=== PATIENT | male | born 1980 | race Caucasian/White ===

== ENCOUNTER 2016-12-02 19:02 | Emergency (ER) | payer OTHER ==
[~2016-12-02] VITALS: Ht 182.9 cm; Wt 71.9 kg
[~2016-12-02 19:02] MED LIST: HYDR-2768 PO; LORTA5 PO
[2016-12-02 19:05] VITALS: BP 174/110; PULSE 110; RESP 20; TEMP 99; O2SAT 96
--- NOTE | 2016-12-02 22:36 | PD ---
HPI Chief Complaint: Medical Clearance Time Seen by Provider: 22:26 Travel History International Travel<30 days: No Contact w/Intl Traveler<30days: No Traveled to known affect area: No History of Present Illness HPI The patient is a 36-year-old male who presents emergency department for psychiatric evaluation. The patient states his father and him were involved in an argument and dispute on Wednesday. The patient's dog apparently attacked his father who "nearly bled out ", and had to be admitted to the hospital with a wound VAC. The patient states that since he argument and fight with his father, he has had difficulty sleeping, difficulty concentrating, and has been "shivering ". Patient is also been using drugs including cocaine, cocaine, benzodiazepines, Dilaudid, and alcohol. The patient does have a history of IV drug abuse and drug abuse in the past, but denies any history of rehabilitation. According to the family, mother and sister, the patient is also made statements that he wants to "jump off a bridge ", and never "wake up ". The patient denies any actual suicidal ideation or homicidal ideation. Patient does state he is upset about the dispute with his father and the subsequent dog attack in hospitalization. The patient denies any previous history of suicide attempts. The patient denies any chronic psychiatric disorders. PFSH Past Medical History Cancer: No Cardiovascular Problems: No Diminished Hearing: No Endocrine: No Genitourinary: No Immune Disorder: No Musculoskeletal: No Neurologic: No Psychiatric: No Reproductive: No Respiratory: No Immunizations Current: Yes Past Surgical History Abdominal Surgery: Yes (LAP APPENDECTOMY) Social History Alcohol Use: Yes Tobacco Use: Yes Substance Use: Yes (CANIBIS OCCASIONALLY, ) Allergies-Medications (Allergen,Severity, Reaction): Coded Allergies: Ibuprofen (Verified Adverse Reaction, Mild, PUFFY EYES, 12/02/16) Reported Meds & Prescriptions Reported Meds & Active Scripts Active Review of Systems Except as stated in HPI: all other systems reviewed are Neg General / Constitutional: No: Fever Cardiovascular: No: Chest Pain or Discomfort Respiratory: No: Shortness of Breath Gastrointestinal: No: Nausea, Vomiting, Abdominal Pain Neurologic: No: Weakness, Dizziness Psychiatric: Positive: Suicidal Ideations (according to the mother and sister) , Substance Abuse Physical Exam Narrative GENERAL: Awake, alert, pleasant 36-year-old male appears his stated age and is in no acute respiratory distress. Patient was shivering. SKIN: Warm and dry. HEAD: Atraumatic. Normocephalic. EYES: Pupils equal and round. No scleral icterus. No injection or drainage. ENT: No nasal bleeding or discharge. Mucous membranes pink and moist. NECK: Trachea midline. No JVD. CARDIOVASCULAR: Regular, tachycardic with a heart rate of 105. RESPIRATORY: No accessory muscle use. Clear to auscultation. Breath sounds equal bilaterally. GASTROINTESTINAL: Abdomen soft, non-tender, nondistended. No rebound tenderness. MUSCULOSKELETAL: No obvious deformities. No clubbing. No cyanosis. No edema. NEUROLOGICAL: Awake and alert. No obvious cranial nerve deficits. Motor grossly within normal limits. Normal speech. Nonfocal. PSYCHIATRIC: Slightly flat affect. Data Data Last Documented VS Vital Signs Date Time Temp Pulse Resp B/P Pulse Ox O2 Delivery O2 Flow Rate FiO2 12/02/16 19:05 99.0 110 20 174/110 96 Room Air Orders Complete Blood Count With Diff (12/02/16 22:32) Comprehensive Metabolic Panel (12/02/16 22:32) Drug Screen, Random Urine (12/02/16 22:32) Alcohol (Ethanol) (12/02/16 22:32) Psych Screen (12/02/16 22:32) Lorazepam (Ativan) (12/02/16 22:45) Labs Laboratory Tests Test 12/02/16 22:35 White Blood Count 6.8 TH/MM3 Red Blood Count 5.43 MIL/MM3 Hemoglobin 17.4 GM/DL Hematocrit 48.8 % Mean Corpuscular Volume 89.8 FL Mean Corpuscular Hemoglobin 32.0 PG Mean Corpuscular Hemoglobin 35.6 % Concent Red Cell Distribution Width 12.6 % Platelet Count 276 TH/MM3 Mean Platelet Volume 7.1 FL Neutrophils (%) (Auto) 47.1 % Lymphocytes (%) (Auto) 36.7 % Monocytes (%) (Auto) 15.1 % Eosinophils (%) (Auto) 0.5 % Basophils (%) (Auto) 0.6 % Neutrophils # (Auto) 3.2 TH/MM3 Lymphocytes # (Auto) 2.5 TH/MM3 Monocytes # (Auto) 1.0 TH/MM3 Eosinophils # (Auto) 0.0 TH/MM3 Basophils # (Auto) 0.0 TH/MM3 CBC Comment DIFF FINAL Differential Comment Sodium Level 138 MEQ/L Potassium Level 3.9 MEQ/L Chloride Level 97 MEQ/L Carbon Dioxide Level 32.5 MEQ/L Anion Gap 9 MEQ/L Blood Urea Nitrogen 7 MG/DL Creatinine 1.18 MG/DL Estimat Glomerular Filtration 69 ML/MIN Rate Random Glucose 93 MG/DL Calcium Level 8.8 MG/DL Total Bilirubin 0.5 MG/DL Aspartate Amino Transf 213 U/L (AST/SGOT) Alanine Aminotransferase 309 U/L (ALT/SGPT) Alkaline Phosphatase 89 U/L Total Protein 8.3 GM/DL Albumin 3.8 GM/DL Ethyl Alcohol Level LESS THAN 3 MG/DL MDM Medical Decision Making Medical Screen Exam Complete: Yes Emergency Medical Condition: Yes Medical Record Reviewed: Yes Interpretation(s) Laboratory Tests Test 12/02/16 22:35 White Blood Count 6.8 TH/MM3 Red Blood Count 5.43 MIL/MM3 Hemoglobin 17.4 GM/DL Hematocrit 48.8 % Mean Corpuscular Volume 89.8 FL Mean Corpuscular Hemoglobin 32.0 PG Mean Corpuscular Hemoglobin 35.6 % Concent Red Cell Distribution Width 12.6 % Platelet Count 276 TH/MM3 Mean Platelet Volume 7.1 FL Neutrophils (%) (Auto) 47.1 % Lymphocytes (%) (Auto) 36.7 % Monocytes (%) (Auto) 15.1 % Eosinophils (%) (Auto) 0.5 % Basophils (%) (Auto) 0.6 % Neutrophils # (Auto) 3.2 TH/MM3 Lymphocytes # (Auto) 2.5 TH/MM3 Monocytes # (Auto) 1.0 TH/MM3 Eosinophils # (Auto) 0.0 TH/MM3 Basophils # (Auto) 0.0 TH/MM3 CBC Comment DIFF FINAL Differential Comment Sodium Level 138 MEQ/L Potassium Level 3.9 MEQ/L Chloride Level 97 MEQ/L Carbon Dioxide Level 32.5 MEQ/L Anion Gap 9 MEQ/L Blood Urea Nitrogen 7 MG/DL Creatinine 1.18 MG/DL Estimat Glomerular Filtration 69 ML/MIN Rate Random Glucose 93 MG/DL Calcium Level 8.8 MG/DL Total Bilirubin 0.5 MG/DL Aspartate Amino Transf 213 U/L (AST/SGOT) Alanine Aminotransferase 309 U/L (ALT/SGPT) Alkaline Phosphatase 89 U/L Total Protein 8.3 GM/DL Albumin 3.8 GM/DL Ethyl Alcohol Level LESS THAN 3 MG/DL Differential Diagnosis Differential diagnosis includes adjustment reaction, substance induced mood disorder, polysubstance abuse, intoxication, depressive disorder NOS, mood disorder. Narrative Course Labs were drawn and sent. Psychiatric evaluation was ordered. The patient was administered Ativan 1 mg orally. Labs were noted, AST and ALT were mildly elevated in the 200s and 300s respectively.. The patient is medically clear to be evaluated by psychiatry. Disposition as per psych. Diagnosis Primary Impression: Substance induced mood disorder Additional Impressions: Adjustment reaction Qualified Code: F43.20 - Adjustment disorder, unspecified type Elevated transaminase level Condition: Stable Gregg Stacy MD Dec 02, 2016 22:36
[2016-12-02] MEDS ORDERED: LORazepam 1 MG TAB PO ONE (22:45)
[2016-12-02 22:51] LABS: AUTOMATED NEUTROPHIL # 3.2 TH/MM3 (1.8-7.7); BASOPHIL % 0.6 % (0.0-2.0); EOSINOPHIL % 0.5 % (0.0-4.0); HEMATOCRIT 48.8 % (39.0-51.0); HEMO FLAGS DIFF FINAL; LYMPH % 36.7 % (9.0-44.0); LYMPHOCYTE # 2.5 TH/MM3 (1.0-4.8); MEAN CELL VOLUME 89.8 FL (80.0-100.0); MEAN CORPUSCULAR HGB CONC 35.6 % (32.0-36.0); MONO % 15.1 % (0.0-8.0); NEUT % 47.1 % (16.0-70.0); PLATELET COUNT 276 TH/MM3 (150-450); RED BLOOD COUNT 5.43 MIL/MM3 (4.50-5.90); RED CELL DISTRIBUTION WIDTH 12.6 % (11.6-17.2); WHITE BLOOD COUNT 6.8 TH/MM3 (4.0-11.0)
[2016-12-02 23:15] LABS: ANION GAP 9 MEQ/L (5-15)
[2016-12-02 23:19] LABS: ALKALINE PHOSPHATASE 89 U/L (45-117); ALT (GPT) 309 U/L (12-78); AST (GOT) 213 U/L (15-37); BICARBONATE 32.5 MEQ/L (21.0-32.0); BLOOD UREA NITROGEN 7 MG/DL (7-18); CHLORIDE 97 MEQ/L (98-107); GLOMERULAR FILTRATION RATE 69 ML/MIN (>89); POTASSIUM 3.9 MEQ/L (3.5-5.1); SODIUM (NA) 138 MEQ/L (136-145); TOTAL BILIRUBIN ADULT 0.5 MG/DL (0.2-1.0)
[2016-12-03 00:18] LABS: AMPHETAMINE, URINE NEG (NEG); BARBITURATES, URINE NEG (NEG); COCAINE, URINE POS (NEG)
[2016-12-03 00:20] VITALS: BP 137/93; PULSE 87; RESP 18; O2SAT 98
== END 2016-12-03 02:56 | disposition short-term general hospital (02) ==
LOC: NEPE 19:02
DX: F19.94 Other psychoactive substance use, unspecified with psychoactive substance-induced mood disorder (principal); F43.20 Adjustment disorder, unspecified; R74.0 Nonspecific elevation of levels of transaminase and lactic acid dehydrogenase [LDH]; Z72.0 Tobacco use
CPT/HCPCS: 80053; 80307; 80320; 85025; 99284

== ENCOUNTER 2017-01-28 00:54 | Inpatient (IN) | payer OTHER ==
[2017-01-28] VITALS (8 sets, daily range): BP systolic 117–151; BP diastolic 62–92; PULSE 88–114; RESP 14–19; TEMP 97.2–99.2; O2SAT 95–100
[2017-01-28 01:14] LABS: AUTOMATED NEUTROPHIL # 7.3 TH/MM3 (1.8-7.7); BASOPHIL # 0.1 TH/MM3 (0-0.2); BASOPHIL % 0.5 % (0.0-2.0); EOSINOPHIL # 0.2 TH/MM3 (0-0.4); EOSINOPHIL % 1.8 % (0.0-4.0); HEMATOCRIT 37.3 % (39.0-51.0); HEMO FLAGS DIFF FINAL; I-STAT POTASSIUM 3.8 MMOL/L (3.5-4.9); LYMPHOCYTE # 3.4 TH/MM3 (1.0-4.8); MEAN CELL VOLUME 91.5 FL (80.0-100.0); MEAN CORPUSCULAR HEMOGLOBIN 32.3 PG (27.0-34.0); MEAN CORPUSCULAR HGB CONC 35.3 % (32.0-36.0); MONO % 5.9 % (0.0-8.0); NEUT % 62.8 % (16.0-70.0); PLATELET COUNT 298 TH/MM3 (150-450); RED BLOOD COUNT 4.08 MIL/MM3 (4.50-5.90); WHITE BLOOD COUNT 11.7 TH/MM3 (4.0-11.0)
[2017-01-28 01:26] LABS: APTT (PATIENT) 25.2 SEC (24.3-30.1); PROTHROMBIN TIME - PATIENT 10.8 SEC (9.8-11.6)
--- NOTE | 2017-01-28 01:31 | PD ---
HPI Chief Complaint: Trauma (Alert) Time Seen by Provider: 01:06 Travel History International Travel<30 days: No (trauma alert) Contact w/Intl Traveler<30days: No History of Present Illness HPI The patient is approximately 28 years old. He was attacked by a pitbull. EMS notes a 7" x 3" avulsion to the scalp. They estimate approximately 500 cc of blood loss on scene. Application of an ABD pad held minimize bleeding. He received 6 mg of morphine prior to ER arrival. He also received a few 100 cc of saline. Upon arrival to the ER the scalp dressing was removed and the patient was seen to have a avulsion extending from the upper forehead into the region of the vertex at least 10 cm wide and at least 10 cm long. Along the wound margins arterial bleeds were observed. 4 x 4's were placed and 2 Moy bandages were wrapped about the wound. Dr. Quezada will take the patient directly to the OR for operative repair. The patient did require an additional 50 g fentanyl twice for pain control here he also received a liter crystalloid here. 2 units of PRBCs were also transfused. Heart rate was about 100-110 during his ER stay with the blood pressure about 150/90 on average. [facility] Past Medical History Medical History: Denies Significant Hx Past Surgical History Surgical History: No Previous Surgery Allergies-Medications (Allergen,Severity, Reaction): Coded Allergies: Penicillin (Unverified Allergy, Intermediate, 01/28/17) Review of Systems ROS Limitations: Clinical Condition Physical Exam Narrative GENERAL: Approximately 28-year-old well-developed well-nourished male SKIN: Warm and dry. HEAD: Large avulsion. Arterial bleeds at margins. EYES: Pupils equal and round. No scleral icterus. No injection or drainage. ENT: No nasal bleeding or discharge. Mucous membranes pink and moist. NECK: Trachea midline. No JVD. CARDIOVASCULAR: Regular. Tachycardia. RESPIRATORY: No accessory muscle use. Clear to auscultation. Breath sounds equal bilaterally. GASTROINTESTINAL: Abdomen soft, non-tender, nondistended. Hepatic and splenic margins not palpable. MUSCULOSKELETAL: No obvious deformities. No clubbing. No cyanosis. No edema. NEUROLOGICAL: Awake and alert. No obvious cranial nerve deficits. Motor grossly within normal limits. Normal speech. PSYCHIATRIC: Appropriate mood and affect; insight and judgment normal. Data Data Orders Fentanyl Inj (Fentanyl Inj) (3/16/17 01:05) I-Stat Profile (01/28/17 01:06) I-Stat Creatinine (01/28/17 01:06) Complete Blood Count With Diff (01/28/17 01:06) Prothrombin Time / Inr (Pt) (01/28/17 01:06) Act Partial Throm Time (Ptt) (01/28/17 01:06) Admit Order (Ed Use Only) (01/28/17 01:29) Labs Laboratory Tests Test 01/28/17 00:58 White Blood Count 11.7 TH/MM3 Red Blood Count 4.08 MIL/MM3 Hemoglobin 13.2 GM/DL Bedside Hemoglobin 12.9 G/DL Hematocrit 37.3 % Bedside Hematocrit 38.0 % Mean Corpuscular Volume 91.5 FL Mean Corpuscular Hemoglobin 32.3 PG Mean Corpuscular Hemoglobin 35.3 % Concent Red Cell Distribution Width 14.0 % Platelet Count 298 TH/MM3 Mean Platelet Volume 7.1 FL Neutrophils (%) (Auto) 62.8 % Lymphocytes (%) (Auto) 29.0 % Monocytes (%) (Auto) 5.9 % Eosinophils (%) (Auto) 1.8 % Basophils (%) (Auto) 0.5 % Neutrophils # (Auto) 7.3 TH/MM3 Lymphocytes # (Auto) 3.4 TH/MM3 Monocytes # (Auto) 0.7 TH/MM3 Eosinophils # (Auto) 0.2 TH/MM3 Basophils # (Auto) 0.1 TH/MM3 CBC Comment DIFF FINAL Differential Comment Prothrombin Time 10.8 SEC Prothromb Time International 1.0 RATIO Ratio Activated Partial 25.2 SEC Thromboplast Time Bedside Sodium 145 MMOL/L Bedside Potassium 3.8 MMOL/L Bedside Chloride 102 MMOL/L Bedside Blood Urea Nitrogen 10 MG/DL Bedside Creatinine 1.1 MG/DL Bedside Glucose 101 MG/DL Blood Type O POSITIVE Antibody Screen NEGATIVE Crossmatch Leukocyte-Reduced Red Blood Cells Blood Bank Comment [facility] Medical Screen Exam Complete: Yes Emergency Medical Condition: Yes Differential Diagnosis ICH, skull/skull base fx, c-spine fx, facial bone fracture, DENISE, PTX, aorta injury, diaphragm rupture, pelvis fracture, intraperitoneal hemorrhage, solid organ injury, retroperitoneal hemorrhage, long bone fracture, open fracture Narrative Course Please refer to history of present illness. Ancef and tetanus given. Patient will go to OR for operative management. Trauma Alert - Level One Trauma Alert Level One: Full trauma team activate, Patient evaluated, Trauma surgeon summoned Time Surgeon Summoned: 00:36 Time Anesthesiologist Summoned: 00:37 Diagnosis Diagnosis: Primary Impression: Scalp avulsion Qualified Code: S08.0XXA - Scalp avulsion, initial encounter Admitting Physician Requests: Admit David Marr MD Jan 28, 2017 01:30
[2017-01-28] MEDS ORDERED: VANCOMYCIN HCL 1000 MG VIAL OTHER ONE (02:25)
[2017-01-28] MEDS ORDERED: SUGAMMADEX SODIUM 200 MG/2 ML VIAL IV PUSH ONE ×2 (02:32)
[2017-01-28] MEDS ORDERED: ACETAMINOPHEN 1000 MG/100 ML VIAL IV ONE (02:32)
[2017-01-28 02:40] LABS: AUTOMATED NEUTROPHIL # 10.7 TH/MM3 (1.8-7.7); BASOPHIL % 0.3 % (0.0-2.0); EOSINOPHIL # 0.1 TH/MM3 (0-0.4); EOSINOPHIL % 0.8 % (0.0-4.0); HEMATOCRIT 30.6 % (39.0-51.0); HEMO FLAGS DIFF FINAL; LYMPH % 15.8 % (9.0-44.0); LYMPHOCYTE # 2.2 TH/MM3 (1.0-4.8); MEAN CELL VOLUME 91.5 FL (80.0-100.0); MEAN CORPUSCULAR HEMOGLOBIN 31.5 PG (27.0-34.0); MEAN CORPUSCULAR HGB CONC 34.4 % (32.0-36.0); MONO % 7.3 % (0.0-8.0); NEUT % 75.8 % (16.0-70.0); PLATELET COUNT 229 TH/MM3 (150-450); RED BLOOD COUNT 3.34 MIL/MM3 (4.50-5.90); WHITE BLOOD COUNT 14.1 TH/MM3 (4.0-11.0)
[2017-01-28] MEDS ORDERED: MORPHINE SULFATE 4 MG/ML INJ ONE (02:59)
[2017-01-28] MEDS ORDERED: *MEPERIDINE 25 MG INJ VIAL PERIprocedural Use ONLY ONE (02:59)
[2017-01-28] MEDS ORDERED: MISCELLANEOUS NURSING INFORMATION XX SCH (03:00)
[2017-01-28] MEDS ORDERED: RABIES VACCINE HUMAN DIPL CELL 2.5 UNITS/ML SYRINGE IM ONE (03:00)
[2017-01-28] MEDS ORDERED: LEVOFLOXACIN 500 MG PREMIX INJ 100 ML IV SCH (03:00)
[2017-01-28] MEDS ORDERED: ONDANSETRON HCL 4 MG/2 ML VIAL IV PRN (03:00)
[2017-01-28] MEDS: LACTATED RINGER'S 1000 ML INJ 1,000 ML IV SCH ×2 (03:00→12:53)
[2017-01-28] MEDS ORDERED: SODIUM CHLORIDE 0.9% FLUSH 5 ML FLUSH IVF PRN (03:00)
[2017-01-28] MEDS ORDERED: CHLORHEXIDINE GLUCONATE 2 % 1 PACK (2 CLOTHS) TOP PRN (03:00)
[2017-01-28] MEDS ORDERED: fentaNYL CITRATE 250 MCG/5 ML AMP ONE (03:07)
[2017-01-28] MEDS ORDERED: MIDAZOLAM HCL 2 MG/2 ML VIAL ONE (03:07)
--- NOTE | 2017-01-28 03:07 | HHI.HP ---
History of Present Illness Primary Care Physician Unknown Admission Diagnosis Scalp Avulsion Diagnoses: History of Present Illness 36 y.o male presents as a trauma alert after dog bite of his head.Large blood loss at the scene-HD stable,neuro intact-removal of dressing shows several points of arterial bleeding and large descalping area-forehead to vertex- dressing applied-and patient brought emergently to the OR. Review of Systems Constitutional: DENIES: Diaphoretic episodes, Fatigue, Fever, Weight gain, Weight loss, Chills, Dizziness, Change in appetite, Night Sweats Endocrine: DENIES: Heat/cold intolerance, Polydipsia, Polyuria, Polyphagia Eyes: DENIES: Blurred vision, Diplopia, Eye inflammation, Eye pain, Vision loss , Photosensitivity, Double Vision Ears, nose, mouth, throat: DENIES: Tinnitus, Hearing loss, Vertigo, Nasal discharge, Oral lesions, Throat pain, Hoarseness, Ear Pain, Running Nose, Epistaxis, Sinus Pain, Toothache, Odynophagia Respiratory: DENIES: Apneas, Cough, Snoring, Wheezing, Hemoptysis, Sputum production, Shortness of breath Cardiovascular: DENIES: Chest pain, Palpitations, Syncope, Dyspnea on Exertion , PND, Lower Extremity Edema, Orthopnea, Claudication Gastrointestinal: DENIES: Abdominal pain, Black stools, Bloody stools, Constipation, Diarrhea, Nausea, Vomiting, Difficulty Swallowing, Anorexia Genitourinary: DENIES: Sexual dysfunction, Urinary frequency, Urinary incontinence, Urgency, Hematuria, Dysuria, Nocturia, Penile Discharge, Testicular Pain, Testicular Swelling Musculoskeletal: DENIES: Joint pain, Muscle aches, Stiffness, Joint Swelling, Back pain, Neck pain Integumentary: DENIES: Abnormal pigmentation, Nail changes, Pruritus, Rash Hematologic/lymphatic: DENIES: Bruising, Lymphadenopathy Immunologic/allergic: DENIES: Eczema, Urticaria Neurologic: DENIES: Abnormal gait, Headache, Localized weakness, Paresthesias, Seizures, Speech Problems, Tremor, Poor Balance Psychiatric: DENIES: Anxiety, Confusion, Mood changes, Depression, Hallucinations, Agitation, Suicidal Ideation, Homicidal Ideation, Delusions Past Family Social History Allergies: Coded Allergies: Penicillin (Unverified Allergy, Intermediate, 01/28/17) Past Medical History none Past Surgical History none Reported Medications none Active Ordered Medications none Family History none Social History none Physical Exam Vital Signs Vital Signs Date Time Temp Pulse Resp B/P Pulse Ox O2 Delivery O2 Flow Rate FiO2 01/28/17 00:01 100 2.00 Physical Exam GENERAL: This is a well-nourished, well-developed patient, in mild distress. SKIN: No rashes, ecchymoses or lesions. Cool and dry.Large descalping of scalp forehead to vertex HEAD: Atraumatic. Normocephalic. No temporal or scalp tenderness. EYES: Pupils equal round and reactive. Extraocular motions intact. No scleral icterus. No injection or drainage. ENT: Nose without bleeding, purulent drainage or septal hematoma. Throat without erythema, tonsillar hypertrophy or exudate. Uvula midline. Airway patent. NECK: Trachea midline. No JVD or lymphadenopathy. Supple, nontender, no meningeal signs. CARDIOVASCULAR: Regular rate and rhythm without murmurs, gallops, or rubs. RESPIRATORY: Clear to auscultation. Breath sounds equal bilaterally. No wheezes , rales, or rhonchi. GASTROINTESTINAL: Abdomen soft, non-tender, nondistended. No hepato-splenomegaly , or palpable masses. No guarding. MUSCULOSKELETAL: Extremities without clubbing, cyanosis, or edema. No joint tenderness, effusion, or edema noted. No calf tenderness. Negative Homans sign bilaterally. NEUROLOGICAL: Awake and alert. Cranial nerves II through XII intact. Motor and sensory grossly within normal limits. Five out of 5 muscle strength in all muscle groups. Normal speech. Laboratory Laboratory Tests Test 01/28/17 01/28/17 00:58 02:27 White Blood Count 11.7 14.1 Red Blood Count 4.08 3.34 Hemoglobin 13.2 10.5 Bedside Hemoglobin 12.9 Hematocrit 37.3 30.6 Bedside Hematocrit 38.0 Mean Corpuscular Volume 91.5 91.5 Mean Corpuscular Hemoglobin 32.3 31.5 Mean Corpuscular Hemoglobin 35.3 34.4 Concent Red Cell Distribution Width 14.0 14.0 Platelet Count 298 229 Mean Platelet Volume 7.1 7.3 Neutrophils (%) (Auto) 62.8 75.8 Lymphocytes (%) (Auto) 29.0 15.8 Monocytes (%) (Auto) 5.9 7.3 Eosinophils (%) (Auto) 1.8 0.8 Basophils (%) (Auto) 0.5 0.3 Neutrophils # (Auto) 7.3 10.7 Lymphocytes # (Auto) 3.4 2.2 Monocytes # (Auto) 0.7 1.0 Eosinophils # (Auto) 0.2 0.1 Basophils # (Auto) 0.1 0.0 CBC Comment DIFF FINAL DIFF FINAL Differential Comment Prothrombin Time 10.8 Prothromb Time International 1.0 Ratio Activated Partial 25.2 Thromboplast Time Bedside Sodium 145 Bedside Potassium 3.8 Bedside Chloride 102 Bedside Blood Urea Nitrogen 10 Bedside Creatinine 1.1 Bedside Glucose 101 Blood Type O POSITIVE Antibody Screen NEGATIVE Crossmatch Leukocyte-Reduced Red Blood Cells Blood Bank Comment Result Diagram: 01/28/17 0227 Assessment and Plan Assessment and Plan Large complex descalping-from forehead to vertex with active bleeding Dressing applied patient urgently brought to the OR Beth Quezada MD Jan 28, 2017 03:07
[2017-01-28] MEDS ORDERED: LORazepam 0.5 MG TAB PO PRN (03:15)
--- NOTE | 2017-01-28 03:18 | PD.OP ---
Operative Report Preoperative Diagnosis: (1) Bite from dog (2) complex wound scalp Postoperative Diagnosis: Dog Bite Descalping with skin soft tissue loss [id number] Procedure: Washout with abx solution,hemostatis Anesthesia: general Surgeon: Beth Quezada Critical Care Transport Nurse(s): OR staff Operation and Findings: The 36-year-old male was brought in as a trauma alert-actively bleeding complex wound of the skull-brought to the OR for immediate exploration and hemostasis. Technique He was brought into the OR and identified as the patient. The administration general anesthesia patient's scalp was sterilely prepped and draped using usual technique. Hemostasis was obtained from multiple bleeding vessels combination of Bovie cautery suture tie and free tie. Washout was performed with antibiotic solution. Wound shows complete loss of skin and soft tissue exposure of skull and galea. The wound extends from the forehead to the vertex-size is 10 15 cm. Hemostatic dressing was applied. Postoperatively plan IV antibiotics,rabies vaccine. Plastics consult in the a.m.Patient's family was updated postoperatively. Beth Quezada MD Jan 28, 2017 03:18
[2017-01-28] MEDS ORDERED: DO NOT ADM ANY ANTICOAGULANT DRUGS XX PRN (03:45)
[2017-01-28] MEDS ORDERED: CHLORHEXIDINE GLUCONATE 2 % 1 PACK (2 CLOTHS) TOP SCH (04:00)
[2017-01-28] MEDS: HYDROmorphone HCL PF 2 MG/ML VIAL IVP PRN ×4 (04:25→11:42)
[2017-01-28] MEDS: metroNIDAZOLE 500 MG INJ 100 ML IV SCH ×2 (07:35→11:07)
[2017-01-28] MEDS ORDERED: DOCUSATE SODIUM 50 MG/SENNA 8.6 MG TAB PO SCH (09:00)
[2017-01-28] MEDS ORDERED: FAMOTIDINE 20 MG TAB PO SCH (09:00)
[2017-01-28] MEDS ORDERED: NICOTINE 14 MG/24 HR PATCH TD SCH (11:00)
[2017-01-28 11:43] LABS: HEMATOCRIT 37.5 % (39.0-51.0); MEAN CELL VOLUME 90.4 FL (80.0-100.0); MEAN CORPUSCULAR HEMOGLOBIN 30.2 PG (27.0-34.0); MEAN CORPUSCULAR HGB CONC 33.4 % (32.0-36.0); PLATELET COUNT 274 TH/MM3 (150-450); RED BLOOD COUNT 4.15 MIL/MM3 (4.50-5.90); RED CELL DISTRIBUTION WIDTH 14.2 % (11.6-17.2); REVIEW FLAG FINAL; WHITE BLOOD COUNT 14.2 TH/MM3 (4.0-11.0)
[2017-01-28] MEDS ORDERED: PROPOFOL 200 MG/20 ML AMP IV ONE (12:00)
[2017-01-28] MEDS ORDERED: PHENYLEPH/NS 1000 MCG/10 ML SYR IV ONE (12:00)
[2017-01-28] MEDS ORDERED: LACTATED RINGER'S 1000 ML INJ 1,000 ML IV ONE (12:00)
[2017-01-28] MEDS ORDERED: ONDANSETRON HCL 4 MG/2 ML VIAL IV PUSH ONE (12:00)
[2017-01-28 12:03] LABS: ALKALINE PHOSPHATASE 56 U/L (45-117); ALT (GPT) 104 U/L (12-78); ANION GAP 7 MEQ/L (5-15); AST (GOT) 47 U/L (15-37); BICARBONATE 28.5 MEQ/L (21.0-32.0); BLOOD UREA NITROGEN 10 MG/DL (7-18); CHLORIDE 103 MEQ/L (98-107); GLOMERULAR FILTRATION RATE 67 ML/MIN (>89); POTASSIUM 4.1 MEQ/L (3.5-5.1); SODIUM (NA) 138 MEQ/L (136-145); TOTAL BILIRUBIN ADULT 0.5 MG/DL (0.2-1.0)
[2017-01-28] MEDS ORDERED: ONDA4INJ2 IV (13:48)
[2017-01-28] MEDS ORDERED: FAMO20TA2 PO (13:48)
[2017-01-28] MEDS ORDERED: NICO14DI TD (13:48)
[2017-01-28] MEDS ORDERED: LORA-392 PO (13:48)
[2017-01-28] MEDS ORDERED: HYDR2INJ6 IVP (13:48)
[2017-01-28] MEDS ORDERED: SENN1TAB PO (13:48)
[2017-01-28] MEDS: HYDROmorphone HCL PF 1 MG/ML VIAL IV PUSH PRN ×2 (14:34→16:46)
--- NOTE | 2017-01-28 14:57 | HHI.DS ---
Discharge Summary Admission Date Jan 28, 2017 at 01:31 Discharge Date: Jan 28, 2017 Admitting Diagnosis Scalp Avulsion Brief History S/P Trauma: Dog bite CBC/BMP: 01/28/17 1122 01/28/17 1122 Significant Findings Laboratory Tests Test 01/28/17 01/28/17 01/28/17 00:58 02:27 11:22 White Blood Count 11.7 TH/MM3 14.1 TH/MM3 14.2 TH/MM3 (4.0-11.0) (4.0-11.0) (4.0-11.0) Red Blood Count 4.08 MIL/MM3 3.34 MIL/MM3 4.15 MIL/MM3 (4.50-5.90) (4.50-5.90) (4.50-5.90) Hematocrit 37.3 % 30.6 % 37.5 % (39.0-51.0) (39.0-51.0) (39.0-51.0) Bedside Glucose 101 MG/DL (60-95) Hemoglobin 10.5 GM/DL 12.5 GM/DL (13.0-17.0) (13.0-17.0) Neutrophils (%) (Auto) 75.8 % (16.0-70.0) Neutrophils # (Auto) 10.7 TH/MM3 (1.8-7.7) Monocytes # (Auto) 1.0 TH/MM3 (0-0.9) Estimat Glomerular Filtration 67 ML/MIN (>89) Rate Random Glucose 159 MG/DL (74-106) Calcium Level 7.7 MG/DL (8.5-10.1) Aspartate Amino Transf 47 U/L (15-37) (AST/SGOT) Alanine Aminotransferase 104 U/L (12-78) (ALT/SGPT) Albumin 3.2 GM/DL (3.4-5.0) PE at Discharge GENERAL: 36 year old male sitting OOB in chair. SKIN: Warm and dry. HEAD: Normocephalic. Dry dressing to head c/d/i. ENT: No nasal bleeding or discharge. Mucous membranes pink and moist. NECK: Trachea midline. No JVD. CARDIOVASCULAR: Regular rate and rhythm. RESPIRATORY: No accessory muscle use. Clear to auscultation. Breath sounds equal bilaterally. GASTROINTESTINAL: Abdomen soft, non-tender, nondistended.+ BS. MUSCULOSKELETAL: Extremities without clubbing, cyanosis, or edema. No obvious deformities. NEUROLOGICAL: Awake and alert. Normal speech. Hospital Course [place]: Attacked by a pit bull on the head. Large blood loss on scene. INJURIES: Scalp avulsion with arterial bleed. 01/28: Washout with abx solution, hemostatis Diet: Regular, tolerating Pulm: IS, encouraged use Pain: Dilaudid, Ativan. Activity: OOB to chair. Tolerated well. GI: Pepcid Bowel: Pericolace 2 BID DVT: SCDs IV Antibiotics: Levaquin. Flagyl. Arrangements made for patient transfer to [facility] in [place] for plastic surgery evaluation of free flap to skull. Patient accepted at [facility], awaiting bed assignment. Plan of care discussed patient at bedside. 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
[2017-01-28] MEDS ORDERED: METR-1 PO (15:04)
[2017-01-28] MEDS ORDERED: LEVA500T PO (15:04)
[2017-01-28] MEDS ORDERED: REMOVE OLD NICODERM (NICOTINE) PATCH TD SCH (21:00)
== END 2017-01-28 17:27 | disposition short-term general hospital (02) | DRG 983 ==
LOC: NEPI 00:54 → MERGE 01:31 → EDBD 01:31 → NEDA 01:31 → N03B 04:00 → N05B 13:34
PROVIDERS: ADMIT Surgery Trauma Surgery; ATTEND Surgery Trauma Surgery
PROC: 3E10X8Z Irrigation of Skin and Mucous Membranes using Irrigating Substance (ICD-10-PCS; 2017-01-28)
PROC: 30233N1 Transfusion of Nonautologous Red Blood Cells into Peripheral Vein, Percutaneous Approach (ICD-10-PCS; 2017-01-28)
PROC: 0W300ZZ Control Bleeding in Head, Open Approach (ICD-10-PCS; principal; 2017-01-28 01:40)
DX: S08.0XXA Avulsion of scalp, initial encounter (principal); R58 Hemorrhage, not elsewhere classified; W54.0XXA Bitten by dog, initial encounter
CPT/HCPCS: 36430; 80053; 82435; 82565; 82947; 84132; 84295; 84520; 85025; 85027; 85610; 85730; 86850; 86900; 86901; 86920; 87641; 88305; 90471; 90675; 96374; 99291; G0390; J0131; J1170; J1956; J2175; J2250; J2270; J2370; J2405; J3010; J3370; J7120; P9016